=== PATIENT | male | born 1985 | race Caucasian/White ===

== ENCOUNTER 2017-12-03 22:26 | Emergency (ER) | payer SELFPAY ==
--- NOTE | 2017-12-03 23:16 | EDM.PDOC ---
ED HPI GENERAL MEDICAL PROBLEM - General Chief Complaint: Lower Extremity Injury/Pain Stated Complaint: poss knee injury Time Seen by Provider: 12/03/17 22:49 Source of Information: Reports: Patient History Limitations: Reports: No Limitations - History of Present Illness INITIAL COMMENTS - FREE TEXT/NARRATIVE: The patient presents with left knee pain. He was on a trampoline on Sunday. He was doing good after but yesterday he started having pain and swelling to the anterior knee. He also says that his knee feels like it is going to give out. He has no other injury. He has no prior injury to his knee. Onset: Gradual Duration: Day(s): Location: Reports: Lower Extremity, Left (Knee) Quality: Reports: Sharp Severity: Moderate Improves with: Reports: Immobilization Worsens with: Reports: Movement Context: Reports: Exercise (Jumping on a trampaline) Associated Symptoms: Reports: No Other Symptoms Left Knee Pain Score (Numeric/FACES): 3 - Related Data Allergies Allergy/AdvReac Type Severity Reaction Status Date / Time No Known Allergies Allergy Verified 12/03/17 22:38 Home Meds: Home Meds . [No Known Home Meds] 11/05/13 [History] Past Medical History - Past Health History Medical/Surgical History: Denies Medical/Surgical History Social & Family History - Tobacco Use Smoking Status *Q: Never Smoker - Recreational Drug Use Recreational Drug Use: No Review of Systems - Review of Systems Review Of Systems: See Below Constitutional: Reports: No Symptoms Eyes: Reports: No Symptoms Ears: Reports: No Symptoms Nose: Reports: No Symptoms Mouth/Throat: Reports: No Symptoms Respiratory: Reports: No Symptoms Cardiovascular: Reports: No Symptoms GI/Abdominal: Reports: No Symptoms Genitourinary: Reports: No Symptoms Musculoskeletal: Reports: Other (Left knee pain) ED EXAM, GENERAL - Physical Exam Exam: See Below Exam Limited By: No Limitations General Appearance: Alert, No Apparent Distress Ears: Normal External Exam Nose: Normal Inspection Head: Atraumatic, Normocephalic Neck: Normal Inspection Respiratory/Chest: No Respiratory Distress Extremities: Other (Mild to moderate edema to the left knee. Pain upon palpation to the anterior knee. He has some splinting of his knee with ligament exam but his ligaments appear to be stable. Good sensation and pulses distally.) Course - Vital Signs Last Recorded V/S: Last Vital Signs Temp 97.8 F 05/21/18 22:36 Pulse 90 12/03/17 22:36 Resp 16 12/03/17 22:36 BP 167/110 H 12/03/17 22:36 Pulse Ox 99 12/03/17 22:36 - Orders/Labs/Meds Orders: Active Orders 24 hr Category Date Time Status Knee Min 4V Lt [CR] Stat Exams 12/03/17 23:08 Taken Durable Medical Equipment for Discharge [DME for Oth 12/03/17 23:56 Ordered Discharge] [COMM] Stat - Re-Assessments/Exams Free Text/Narrative Re-Assessment/Exam: 12/03/17 23:16 I have ordered an x-ray of his knee. 12/03/17 23:57 The x-ray looks good. It appears he has tendonitis. I will get him a knee immobilizer. I will also have him take antiinflammatories. Departure - Departure Time of Disposition: 23:55 Disposition: Home, Self-Care 01 Condition: Good Clinical Impression: Tendonitis of left knee - Discharge Information Referrals: Elsie Garcia PA-C [Primary Care Provider] - Joshua Valiente MD [Physician] - 1 Week Forms: ED Department Discharge, ED Return to Work/School Form Additional Instructions: Ice your knee for 15 minutes 3 times per day for 2 days. Take motrin or aleve for pain. Wear the knee immobilizer for a week. Follow up with Dr Valiente if you are not better in 1 week. - My Orders Last 24 Hours: My Active Orders 12/03/17 23:08 Knee Min 4V Lt [CR] Stat 12/03/17 23:56 Durable Medical Equipment for Discharge [DME for Discharge] [COMM] Stat - Assessment/Plan Last 24 Hours: My Active Orders 12/03/17 23:08 Knee Min 4V Lt [CR] Stat 12/03/17 23:56 Durable Medical Equipment for Discharge [DME for Discharge] [COMM] Stat
--- NOTE | 2017-12-04 08:31 | CR ---
Left knee: Four views of the left knee were obtained. Comparison: No prior knee exam. Medial and lateral joint spaces are maintained in height. No joint effusion is seen. No fracture, dislocation or other bony abnormality is seen. Impression: 1. No abnormality is identified on left knee exam. Diagnostic code #1
== END 2017-12-04 00:07 | disposition home or self-care (01) ==
LOC: JD.ED 22:26
DX: M76.9 Unspecified enthesopathy, lower limb, excluding foot (principal)
CPT/HCPCS: 73564-26-LT; 73564-LT; 99283

== ENCOUNTER 2018-09-05 12:55 | Emergency (ER) | payer MEDICAID ==
[2018-09-05] MEDS ORDERED: LORazepam 0.5 MG Tab PO ONE (13:40)
--- NOTE | 2018-09-05 13:49 | EDM.PDOC ---
ED HPI GENERAL MEDICAL PROBLEM - General Chief Complaint: Chest Pain Stated Complaint: CHEST PAIN/ SOB Time Seen by Provider: 09/05/18 13:06 Source of Information: Reports: Patient, Family, RN Notes Reviewed History Limitations: Reports: No Limitations - History of Present Illness INITIAL COMMENTS - FREE TEXT/NARRATIVE: Patient is a 33 year old male who presents to the ED for the evaluation of chest pain and shortness of breath. He states that at around 8AM while driving this morning, he sneezed and felt a sudden intense left sided chest pain and shooting pain/tingling into his left arm. He notes that this pain was around 7/ 10 when it was present and is now at a3/10. He and his state that he has been under an unusual amount of stress lately. The states that he also has had issues with anxiety in the past, but has never been seen for this. He denies a family history of heart disease or early heart attack issues. He states that he also is getting "winded" quicker, and is very tired most day, and notes that he does not get very good sleep. The states that his sleep schedule has not been normal, nor does he get good quality sleep. He does not have a regular doctor that he sees. He notes some mild nausea, chest pain, and SOB with activities, but denies any vomiting/diarrhea, fever/chills, or other feelings of being unwell. 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 [No Known Home Meds] 11/05/13 [History] Past Medical History - Past Health History Medical/Surgical History: Denies Medical/Surgical History Genitourinary History: Reports: Other (See Below) Other Genitourinary History: abdominal surgery-emergency for twisted intestines Social & Family History - Tobacco Use Smoking Status *Q: Current Every Day Smoker Years of Tobacco use: 14 Packs/Tins Daily: 0.5 - Caffeine Use Caffeine Use: Reports: None - Recreational Drug Use Recreational Drug Use: No ED ROS GENERAL - Review of Systems Review Of Systems: See Below Constitutional: Reports: No Symptoms HEENT: Reports: No Symptoms Respiratory: Reports: Shortness of Breath (with activities). Denies: Wheezing, Cough Cardiovascular: Reports: Chest Pain (see HPI), Blood Pressure Problem (slightly elevated, is not on medications.), Dyspnea on Exertion. Denies: Lightheadedness , Palpitations, Syncope Endocrine: Reports: No Symptoms GI/Abdominal: Reports: Nausea. Denies: Abdominal Pain, Diarrhea, Vomiting : Reports: No Symptoms Musculoskeletal: Reports: Arm Pain (left) Skin: Reports: No Symptoms Neurological: Reports: Tingling. Denies: Headache Psychiatric: Reports: No Symptoms Hematologic/Lymphatic: Reports: No Symptoms Immunologic: Reports: No Symptoms ED EXAM, GENERAL - Physical Exam Exam: See Below Exam Limited By: No Limitations General Appearance: Alert, WD/WN, No Apparent Distress Ears: Normal External Exam Nose: Normal Inspection Throat/Mouth: Normal Inspection, Normal Oropharynx, No Airway Compromise Head: Atraumatic, Normocephalic Neck: Normal Inspection, Supple, Non-Tender, Full Range of Motion Respiratory/Chest: No Respiratory Distress, Lungs Clear, Normal Breath Sounds, No Accessory Muscle Use, Chest Non-Tender Cardiovascular: Normal Peripheral Pulses, Regular Rate, Rhythm, No Murmur GI/Abdominal: Normal Bowel Sounds, Soft, Non-Tender, No Distention, No Mass Extremities: Normal Inspection, Normal Capillary Refill Neurological: Alert, Oriented, Normal Cognition, No Motor/Sensory Deficits Psychiatric: Normal Affect, Normal Mood, Anxious (patient appears very mildly anxious) Skin Exam: Warm, Dry, Intact, Normal Color, No Rash Course - Vital Signs Last Recorded V/S: Last Vital Signs Temp 97.8 F 09/05/18 13:04 Pulse 97 09/05/18 13:04 Resp 12 09/05/18 13:04 BP 164/105 H 09/05/18 13:04 Pulse Ox 97 09/05/18 13:04 - Orders/Labs/Meds Meds: Medications Discontinued Medications Generic Name Dose Route Start Last Admin Trade Name Freq PRN Reason Stop Dose Admin Lorazepam 0.5 mg 09/05/18 13:40 Ativan PO 09/05/18 13:41 ONETIME ONE - Re-Assessments/Exams Free Text/Narrative Re-Assessment/Exam: 09/05/18 13:53 Pt presents to the ED for chest pain/SOB. I believe that his chest pain and and left arm pain was due to the sneeze, maybe he subluxed a rib head. All of this other symptoms seem to be stemming from anxiety. I have ordered 0.5mg Ativan to see how he feels after this. I have discussed the need to establish care with a PCP, he and his are understanding of this. I have also recommended that he obtain a BP cuff and keep a diary of his BP twice daily. If the Ativan helps with his anxiety, I will provide him with a few tabs until he can set up with a provider. states that the kids see Elsie Garcia. Departure - Departure Time of Disposition: 14:15 Disposition: Home, Self-Care 01 Condition: Fair Clinical Impression: Atypical chest pain, Anxiety Instructions: Panic Attack, [id number] Referrals: PCP,None [Primary Care Provider] - Additional Instructions: You have been evaluated in the ED for your chest pain/shortness of breath. Your symptoms have likely stemmed from increased anxiety in your life. Your chest/left arm pain may have been due to nerve irritation when you sneezed abruptly. You may take Tylenol 500mg or 600mg Ibuprofen every 6 hours as needed for pain relief. You have been given 0.5mg Ativan in the ED, this is a medication to help calm the nerves. You have been provided with a script for 0.5mg Ativan every 4-6 hours as needed for feelings of anxiety. Recommend that you obtain a blood pressure monitor and keep a blood pressure journal. Also recommend setting up care with a primary care provider for future management. Please return to the ED if your symptoms should change or worsen.
== END 2018-09-05 14:32 | disposition home or self-care (01) ==
LOC: JD.ED 12:55
DX: F41.9 Anxiety disorder, unspecified (principal); F17.210 Nicotine dependence, cigarettes, uncomplicated
CPT/HCPCS: 99284; A9270; 99283